=== PATIENT | female | born 1945 | race Caucasian/White ===

== ENCOUNTER 2016-04-27 08:26 | Outpatient (CLI) | payer OTHER ==
[~2016-04-27] VITALS: Ht 161.3 cm; Wt 85.7 kg
[2016-04-27] VITALS (12 sets, daily range): BP systolic 143–172; BP diastolic 59–81
[~2016-04-27 08:26] MED LIST: AMLO5TAB2 PO; CLON2TAB2 PO; CYCL10TA2 PO; DOCU-27 PO; HYDR-2762 PO; LOSA100T6 PO; MELO-150 PO; PIOG30TA20 PO
[2016-04-27 08:48] LABS: BASO # 0.1 x10^3/uL (0.0-0.2); BASO % 1 % (0-3); EOS % 6 % (0-3); HEMATOCRIT 31.9 % (36.0-47.0); LYMPH # 1.6 x10^3/uL (1.0-4.8); LYMPH % 31 % (24-48); MEAN CORPUSCULAR HEMOGLOBIN 26 pg (25-35); MEAN CORPUSCULAR HGB CONC 31 g/dL (31-37); MEAN CORPUSCULAR VOLUME 84 fL (79-100); MONO % 10 % (0-9); NEUT % 53 % (31-73); PLATELET COUNT 312 x10^3/uL (140-400); RED BLOOD COUNT 3.82 x10^6/uL (3.50-5.40); RED CELL DISTRIBUTION WIDTH 20.7 % (11.5-14.5); WHITE BLOOD COUNT 5.4 x10^3/uL (4.0-11.0)
[2016-04-27 09:00] LABS: INR 1.2 (0.8-1.1)
[2016-04-27] MEDS ORDERED: LIDOCAINE 1% / SOD BICARB 8.4% 20 ML VIAL. IJ ONE ×3 (09:15→09:45)
[2016-04-27] MEDS ORDERED: MIDAZOLAM HCL 2 MG/2 ML VIAL. ONE (09:20)
[2016-04-27] MEDS ORDERED: FENTANYL PF 100 MCG/2 ML VIAL. ONE (09:20)
[2016-04-27] MEDS ORDERED: MIDAZOLAM HCL 2 MG/2 ML VIAL. IV ONE (09:45)
[2016-04-27] MEDS ORDERED: FENTANYL PF 100 MCG/2 ML VIAL. IV ONE (09:45)
--- NOTE | 2016-04-27 10:05 | PDOC ---
BRIEF OPERATIVE NOTE Pre-Op Diagnosis Anemia Post-Op Diagnosis same Procedure Performed CT Bone Marrow Biopsy Surgeon Leighann Anesthesia Type: Conscious Sedation Specimens Obtained 2 x 2cc aspirates and 1 x 10g core Complications No immediate JOSELYN MILLER MD Apr 27, 2016 10:05
--- NOTE | 2016-04-27 10:07 | PDOC ---
MODERATE SEDATION ASSESSMENT RISKS/ALTERNATIVES Risks/Alternatives Risks and alternatives of this type of sedation and procedure discussed with: RISK/ALTERNATIVES: Patient H & P ON CHART H & P H & P on chart and reviewed for co-morbid conditions and appropriate labs. H&P ON CHART: Yes STATUS PREG STATUS ASSESSED: Yes MEDS/ALLERGIES REVIEWED Meds/Allergies Reviewed Medications and Allergies including time and route of recently administered narcotics and sedatives. MEDS/ALLERGIES REVIEWED: Yes ASA RATING ASA RATING: II AIRWAY ASSESSMENT Airway Assessment Airway patency, oral function limitations, presence of caps, crowns, dentures, partials, and ability to extend neck assessed. AIRWAY ASSESSMENT: Yes MALLAMPATI SCORE MALLAMPATI SCORE: II PRE-SEDATION ASSESSMENT PRE-SEDATION ASSESSMENT: Yes JOSELYN MILLER MD Apr 27, 2016 10:07
--- NOTE | 2016-04-27 10:08 | PDOC1 ---
History and Physical Date of Procedure Date of Admission History of Present Illness Reason for Visit Anemia Past Medical History Past Medical History see nursing pre-op assessment Current Medications Current Medications Current Medications Lidocaine/Sodium Bicarbonate (Buffered Lidocaine 1%) 20 ml STK-MED ONCE IJ ; Start 04/27/16 at 09:15; Stop 04/27/16 at 09:16; Status DC Lidocaine/Sodium Bicarbonate (Buffered Lidocaine 1%) 20 ml STK-MED ONCE IJ ; Start 04/27/16 at 09:19; Stop 04/27/16 at 09:20; Status DC Fentanyl Citrate (Fentanyl 2ml Vial) 100 mcg STK-MED ONCE .ROUTE ; Start at 09:20; Stop 04/27/16 at 09:21; Status DC Midazolam HCl (Versed) 2 mg STK-MED ONCE .ROUTE ; Start 04/27/16 at 09:20; Stop 04/27/16 at 09:21; Status DC Lidocaine/Sodium Bicarbonate (Buffered Lidocaine 1%) 3 ml 1X ONCE IJ Last administered on 04/27/16 09:41; Start 04/27/16 at 09:45; Stop 04/27/16 at 09:46 ; Status DC Midazolam HCl (Versed) 1 mg 1X ONCE IV Last administered on 04/27/16 09:42; Start 04/27/16 at 09:45; Stop 04/27/16 at 09:46; Status DC Fentanyl Citrate (Fentanyl 2ml Vial) 50 mcg 1X ONCE IV Last administered on 09:42; Start 04/27/16 at 09:45; Stop 04/27/16 at 09:46; Status DC Active Scripts Active Reported Hydrocodone-Apap 7.5-325 (Hydrocodone Bit/Acetaminophen) 1 Each Tablet 1 Tab PO PRN Q6HRS PRN Clonazepam 2 Mg Tablet 2 Mg PO DAILY Actos (Pioglitazone Hcl) 30 Mg Tablet 1 Tab PO DAILY Losartan Potassium 100 Mg Tablet 100 Mg PO DAILY Amlodipine Besylate 5 Mg Tablet 5 Mg PO HS Allergies Allergies: Coded Allergies: Penicillins (Verified Allergy, Intermediate, 01/03/16) Physical Exam Vital Signs Vital Signs Date Time Temp Pulse Resp B/P Pulse Ox O2 Delivery O2 Flow Rate FiO2 04/27/16 09:51 62 22 97 Nasal Cannula 2.0 04/27/16 09:14 97.9 154/64 97.9 Other see nursing pre-op assessment Assessment Assessment Anemia Problems: Plan Plan CT Bone Marrow biopsy JOSELYN MILLER MD Apr 27, 2016 10:08
[2016-04-27 10:43] LABS: ANISOCYTOSIS PRESENT; PLT ESTIMATE ADEQUATE (ADEQUATE)
[2016-04-27] MEDS ORDERED: HYDROCODONE/APAP 5/325MG TABLET. PO ONE (11:00)
--- NOTE | 2016-04-27 13:23 | RAD ---
Metastatic skeletal survey, 04/27/2016: History: Lytic bone lesions Multiple images of the bony skeleton were obtained with the following findings delineated: 1. A PA view of the chest reveals several left-sided rib fractures of varying ages. Several of these fractures are mildly displaced. A displaced fracture of the anterolateral aspect of the left seventh rib appears to be recent. There is no evidence of underlying pneumothorax or hemothorax. 2. A lateral view of the skull reveals multiple scattered lytic lesions with sharply defined margins. 3. AP and lateral views of the spine demonstrate an L4 vertebral compression fracture, also noted on an MR study from 04/09/2016. There is patchy bony demineralization. There are moderate scattered degenerative changes throughout the spine. There is a mild associated spondylolisthesis at L2-3 and L3-4. 4. An AP view of the pelvis demonstrates patchy bony demineralization. No definite lytic lesion is seen. A left hip prosthesis is in place. 5. AP views of both humeri and forearms reveal numerous patchy punched out lytic lesions, best seen in both humeri. No pathologic fracture is seen. 6. AP views of both femurs and lower legs demonstrates similar scattered lytic lesions, most numerous in the femurs. No pathologic fracture is evident. A small sclerotic focus in the distal right femur is compatible with a bone infarct. There are moderately severe degenerative changes at both knees. IMPRESSION: 1. Numerous scattered lytic lesions best demonstrated in the skull and extremities as described above, compatible with multiple myeloma. Metastatic disease could also give this appearance. 2. Multiple left-sided rib fractures which are probably pathologic. 3. Mild L4 vertebral compression fracture. 4. Moderate scattered degenerative changes in the spine and at both knees. 5. Left total hip prosthesis in place.
--- NOTE | 2016-04-27 13:33 | RAD ---
Procedure: CT-guided bone marrow aspiration and biopsy Clinical Indication: Adult female with myeloma Sedation: Conscious sedation was administered for 10 minutes. The patient was monitored by a qualified independent observer throughout the time of sedation. Please refer to the medical record for exact doses of medications utilized to achieve moderate sedation. Antibiotics: None Fluoro Time: Not applicable Contrast: None Sterility: The procedure was performed in its entirety using appropriate elements of sterile technique. Consent: The procedure was explained in its entirety to the patient or the patients designated service support representative by a member of the treatment team, including a discussion of the risks, benefits and commonly accepted alternatives to the procedure, as well as the expected consequences of no therapy whatsoever. Discussion of the risks included, but was not limited to, those that are most frequent and those that are rare but possibly severe or life-threatening, as well as the possibility of unforeseen complications. Technique and Findings: Following informed consent, the patient was prepped and draped in usual sterile fashion. Preliminary CT scan of the area of interest was performed. 1% Lidocaine was used to achieve local anesthesia. Under periodic CT surveillance, an 11-gauge needle was advanced through the cortex of the posterior superior iliac spine and 2 separate 2 mL marrow aspirates were obtained and preserved on site by the engineer first assistant. A single 11-gauge core biopsy specimen was then obtained and preserved in formalin. The needle was then removed and hemostasis was achieved with manual compression. Complications: No immediate Impression: 1. CT-guided bone marrow aspiration and biopsy as described PQRS Compliance Statement: One or more of the following individualized dose reduction techniques were utilized for this examination: 1. Automated exposure control 2. Adjustment of the mA and/or kV according to patient size 3. Use of iterative reconstruction technique
--- NOTE | 2016-05-04 15:13 | PATHOLOGY ---
PATHOLOGY REPORT * * * * * * * * FINAL DIAGNOSIS: Peripheral smear: - Normocytic normochromic anemia, mild. Bone marrow, aspirate smears, clot section, and core biopsy: - VARIABLE NORMOCELLULAR TO FOCALLY MILDLY HYPERCELLULAR MARROW SHOWING TRILINEAGE HEMATOPOIESIS, NO SIGNIFICANT DYSPOIESIS, AND FOCAL SOLID CLUSTERS OF PLASMA CELLS SHOWING KAPPA LIGHT CHAIN RESTRICTION, COMPATIBLE WITH A PLASMA CELL NEOPLASM. SEE COMMENT. - Focal adequate reticuloendothelial iron stores. COMMENT: The peripheral smear shows a mild normocytic normochromic anemia. The bone marrow is normocellular to focally mildly hypercellular and shows trilineage hematopoiesis, no significant dyspoiesis, and multiple solid clusters of plasma cells. The solid clusters of plasma cells show kappa light chain restriction. The remaining marrow appears to show a mild polyclonal plasmacytosis. Since the patient appears to have related organ or tissue impairment (i.e. lytic lesions and anemia), the findings are consistent with symptomatic plasma cell myeloma. Correlate clinically. (JPM:mgr; d/t: 05/01/16) Special Stains Performed: Iron stain (A1, aspirate smear); Immunoperoxidase stain for CD138 (A1, B1); In situ hybridization for kappa and lambda light chain both performed on (A1). REPORT ELECTRONICALLY SIGNED BY: Tra Lakhani M.D. DATE/TIME: 05/04/2016 15:13 * * * * * * * * MICROSCOPIC DESCRIPTION: Laboratory Data: The CBC results are dated 04/27/16. The WBC count is 5.4 K/CMM, and the automated WBC differential reveals 53% neutrophils, 31% lymphs, 10% monos, 6% eos, and 1% baso. The RBC count is 3.82 M/CMM, hemoglobin 10.0 G/DL, hematocrit 31.9%, MCV 84 FL, MCH 26 PG, MCHC 31 G/DL, and the RDW is 20.7%. The platelet count is 312 K/CMM. Peripheral Smear: The peripheral smear is reviewed. The WBC count is low normal. The WBC differential reveals a predominance of segmented neutrophils, with smaller populations of lymphocytes and monocytes and several eosinophils and basophils noted. Neutrophils do not show dysplastic changes. There is no significant neutrophilic left shift. There are no circulating blasts. There is no leukoerythroblastic reaction. The lymphocyte population consists of predominantly of small lymphocytes. There are no circulating immature plasma cells. Red blood cells predominantly appear normochromic. Some of the red blood cells appear mildly hypochromic. Red blood cells show moderate anisocytosis and range from normocytic to mildly microcytic. Red blood cells show no significant poikilocytosis. An occasional teardrop red blood cell is noted. Platelets appear normal in number and morphology. Aspirate Smears: Three Gonzalez's-stained and one iron-stained aspirate smears are examined. Erythroid maturation appears normoblastic. There are no megaloblastic or overt dysplastic changes. Granulopoiesis qualitatively appears normal. There is no significant left shift or dysplastic changes. There is no increase of blasts. Megakaryocytes appear adequate in number and are of variable ploidy. There are focal areas of plasmacytosis. Many areas show less than 5%-10% plasma cells. There are focal areas showing between 20% and 40% plasma cells. There is a cellular area within one of the smears which show a sheet of monotonous appearing cells consistent with a smeared nodule of plasma cells. This same smear has another small area showing a solid focus of plasma cells consistent with a smaller smeared nodule of plasma cells. The plasma cells in this area are atypical. The plasma cells are enlarged, and possess enlarged eccentric nuclei containing a nucleolus. Occasional binucleated and rare trinucleated plasma cells are noted. Other areas of the marrow show a mixture of relatively small plasma cells and larger atypical plasma cells. The iron stain of the aspirate smear shows only focal granular iron stores. No ringed sideroblasts are identified. Bone Marrow Biopsy and Clot Sections: Sections of the bone marrow biopsy reveal a segment of bone marrow which ranges between 20% and 40% cellular. The clot section contains multiple marrow particles, the majority of which range between 20% and 40-50% cellular. There is a good admixture of erythroid and granulocytic precursors, which are present in varying stages of maturation. Megakaryocytes appear adequate in number and are of variable ploidy. There are two solid nodular clusters of plasma cells within the bone marrow biopsy. There are four expanded solid nodules of plasma cells and several smaller solid nodular clusters of plasma cells. The plasma cells are mildly atypical. The plasma cells possess enlarged eccentric nuclei containing inconspicuous nucleoli. Immunoperoxidase stains for CD138 are obtained on the biopsy and clot section and in situ hybridization for kappa and lambda light chain are obtained on the clot section and yield the following results: CD138 (B1): Two solid nodules of plasma cells positive; plasma cells positive having an interstitial distribution and comprising approximately 5-10% of nucleated marrow cells. CD138 (A1): Several solid nodules of plasma cells positive; plasma cells positive having an interstitial distribution and comprising approximately 5-10% of nucleated marrow cells. [place] FLOWER (A1): Plasma cells in solid nodules positive and show kappa light chain restriction; small population of plasma cells having an interstitial distribution positive and appearing polyclonal. Conchita FLOWER (A1): Only a few plasma cells in solid nodules positive; small population of plasma cells having an interstitial distribution positive and appearing polyclonal. The iron stain of the clot section shows focal reticuloendothelial iron stores. There are no ringed sideroblasts. Special Studies: Bone marrow submitted for flow cytometry has a viability of 99.1%. Granulocytes comprise 80.9% of total cells and show phenotypic evidence of maturation. Monocytes comprise 3.7% of total cells and show phenotypic evidence of maturation. CD45 dim, CD34 positive cells comprise 0.9% of total cells. Lymphocytes comprise 11.9% of total cells. T-cells comprise 84.9% of lymphoid cells and show a CD4/CD8 ratio of about 1.3. NK-cells comprise 7.3% of lymphoid cells. Mature B-cells comprise 5.8% of lymphoid cells and are polyclonal with a kappa:lambda ratio of 1.7. Plasma cells comprise 0.6% of total cells. The plasma cells show both an abnormal and normal plasma cell phenotype. The majority (approximately 64% of all plasma cells) show an abnormal plasma cell phenotype and are CD19 negative, CD45 negative, and CD56 positive with cytoplasmic kappa light chain restriction. The kappa restricted plasma cells comprise approximately 91% of all plasma cells. Bone marrow submitted for cytogenetic analysis shows a normal female karyotype in all cells analyzed GROSS PATHOLOGY: A. Received in formalin labeled "Natty Cardoza and BM asp," is blood coagulum, measuring from 2.3 x 2.0 x 0.3 cm in aggregate dimensions. The specimen is submitted entirely in cassette A1. B. Received in formalin labeled "Alpesh Cardozaia" and additionally labeled "bm bx" on the requisition is a single needle core of lutz bone, measuring 1.5 cm in length and 0.2 cm in diameter. The specimen is submitted entirely in cassette B1, following decalcification. (TTL; 04/27/2016) INITIAL CPT CODE(S): 16387, 22168, 42553(2), 11278, 70066(2), 06215, 36691, 02921(2) Professional services performed [place] [facility] [place] [address] Technical services performed by [facility] at [address] [place] [address], [facility] [address], [place] [address]. SPECIMEN(S) RECEIVED: A.Bone marrow, clot B.Bone marrow, biopsy C.Bone marrow, aspirate smears D.Peripheral smear CLINICAL HISTORY: Myeloma PATIENT: NATTY CARDOZA /AGE: 12 1945 (Age: 71) PATIENT #: [id number] ALT CASE #: SPECIMEN COLLECTION DATE: 04/27/2016 SPECIMEN RECEIVED DATE: 04/27/2016 [facility] - [address] [place] [address] - PHONE: [phone] * * * END OF REPORT * * *
== END 2016-04-27 11:50 | disposition home or self-care (01) ==
LOC: INTRAD 08:26
PROVIDERS: ATTEND Internal Medicine Hematology & Oncology
DX: D72.823 Leukemoid reaction (principal); D64.9 Anemia, unspecified; M89.9 Disorder of bone, unspecified; I10 Essential (primary) hypertension; E66.9 Obesity, unspecified; E11.9 Type 2 diabetes mellitus without complications; F17.200 Nicotine dependence, unspecified, uncomplicated
CPT/HCPCS: 36415; 38221; 77012; 77075; 85007; 85027; 85610; 88184; 88185; 88237; G0364; J2250; J3010; 88305; 88311; 88313; 88341; 88342; 88364; 88365; G0641

== ENCOUNTER 2016-12-03 15:00 | Emergency (ER) | payer OTHER ==
[~2016-12-03] VITALS: Ht 162.6 cm; Wt 85.7 kg
[~2016-12-03 15:00] MED LIST changes: +DOCU-109 PO; -DOCU-27 PO; -MELO-150 PO; +MELO15TA23 PO; -PIOG30TA20 PO; +PIOG30TA41 PO
--- NOTE | 2016-12-03 15:44 | PHYS DOC ---
Past Medical History Past Medical History: Diabetes-Type II, Hypertension, Other Additional Past Medical Histor: multiple myeloma last chemo in july Alcohol Use: Rarely Drug Use: None Adult General Chief Complaint Chief Complaint: CHEST WALL PAIN HPI HPI Patient is a 71 year old [female] who presents with [1 pm three episodes fleeting CP (not exertional; substernal; nonradiating) lasting less than 30 seconds and exertional dyspnea w few days of new feet and ankle swelling. hx multiple myeloma w chemo this summer; no cardiac or lung hx. no fever, nausea, vomiting or diarrhea. no prior cardiac workup or blood clots.] Review of Systems Review of Systems Constitutional: Denies fever or chills [] Eyes: Denies change in visual acuity, redness, or eye pain [] HENT: Denies nasal congestion or sore throat [] Respiratory: Denies cough or shortness of breath [] Cardiovascular: No additional information not addressed in HPI [] GI: Denies abdominal pain, nausea, vomiting, bloody stools or diarrhea [] : Denies dysuria or hematuria [] Musculoskeletal: Denies back pain or joint pain [] Integument: Denies rash or skin lesions [] Neurologic: Denies headache, focal weakness or sensory changes [] Endocrine: Denies polyuria or polydipsia [ all ROS neg except as mentioned in the HIP] Current Medications Current Medications Current Medications Medications (Trade) Dose Ordered Sig/Cara Start Time Stop Time Status Last Admin Dose Admin Info (Do NOT chart on this entry -- for MONITORING) 1 each PRN DAILY PRN 12/03/16 16:30 12/03/16 18:05 DC Iohexol (Omnipaque 350 Mg/ml) 60 ml 1X ONCE 12/03/16 16:30 12/03/16 16:31 DC 12/03/16 16:32 60 ML Sodium Chloride 1,000 ml @ 0 mls/hr 1X ONCE 12/03/16 16:45 12/03/16 16:46 DC 12/03/16 16:56 999 MLS/HR Allergies Allergies Allergies Coded Allergies Type Severity Reaction Last Updated Verified Penicillins Allergy Intermediate 01/03/16 Yes Physical Exam Physical Exam Constitutional: Well developed, well nourished but bald post chemo, no acute distress, non-toxic appearance. [] HENT: Normocephalic, atraumatic, bilateral external ears normal, oropharynx moist, no oral exudates, nose normal. [] Eyes: PERRLA, EOMI, conjunctiva normal, no discharge. [] Neck: Normal range of motion, no tenderness, supple, no stridor. [] Cardiovascular:Heart rate regular rhythm, no murmur [] Lungs & Thorax: Bilateral breath sounds clear to auscultation [] Abdomen: Bowel sounds normal, soft, no tenderness, no masses, no pulsatile masses. [] Skin: Warm, dry, no erythema, no rash. [] Back: No tenderness, no CVA tenderness. [] Extremities: No tenderness, no cyanosis, no clubbing, ROM intact; TRACE 1+ edema ankles/feet. [] Neurologic: Alert and oriented X 3, normal motor function, normal sensory function, no focal deficits noted. [] Psychologic: Affect normal, judgement normal, mood normal. [] Current Patient Data Vital Signs Vital Signs Date Time Temp Pulse Resp B/P (MAP) Pulse Ox O2 Delivery O2 Flow Rate FiO2 12/03/16 18:01 76 18 157/70 (99) 97 Room Air 12/03/16 15:15 98.2 98.2 Lab Values Laboratory Tests Test 12/03/16 15:35 White Blood Count 4.1 x10^3/uL (4.0-11.0) Red Blood Count 3.36 x10^6/uL (3.50-5.40) L Hemoglobin 11.7 g/dL (12.0-15.5) L Hematocrit 34.6 % (36.0-47.0) L Mean Corpuscular Volume 103 fL (79-100) H Mean Corpuscular Hemoglobin 35 pg (25-35) Mean Corpuscular Hemoglobin Concent 34 g/dL (31-37) Red Cell Distribution Width 14.5 % (11.5-14.5) Platelet Count 174 x10^3/uL (140-400) Neutrophils (%) (Auto) 70 % (31-73) Lymphocytes (%) (Auto) 20 % (24-48) L Monocytes (%) (Auto) 7 % (0-9) Eosinophils (%) (Auto) 3 % (0-3) Basophils (%) (Auto) 1 % (0-3) Neutrophils # (Auto) 2.9 x10^3uL (1.8-7.7) Lymphocytes # (Auto) 0.8 x10^3/uL (1.0-4.8) L Monocytes # (Auto) 0.3 x10^3/uL (0.0-1.1) Eosinophils # (Auto) 0.1 x10^3/uL (0.0-0.7) Basophils # (Auto) 0.0 x10^3/uL (0.0-0.2) Sodium Level 146 mmol/L (136-145) H Potassium Level 3.1 mmol/L (3.5-5.1) L Chloride Level 110 mmol/L (98-107) H Carbon Dioxide Level 27 mmol/L (21-32) Anion Gap 9 (6-14) Blood Urea Nitrogen 12 mg/dL (7-20) Creatinine 1.1 mg/dL (0.6-1.0) H Estimated GFR (Cockcroft-Gault) 49.2 BUN/Creatinine Ratio 11 (6-20) Glucose Level 136 mg/dL (70-99) H Calcium Level 8.7 mg/dL (8.5-10.1) Total Bilirubin 0.2 mg/dL (0.2-1.0) Aspartate Amino Transferase (AST) 26 U/L (15-37) Alanine Aminotransferase (ALT) 17 U/L (14-59) Alkaline Phosphatase 52 U/L (46-116) Troponin I Quantitative 0.023 ng/mL (0.000-0.055) Total Protein 5.8 g/dL (6.4-8.2) L Albumin 2.4 g/dL (3.4-5.0) L Albumin/Globulin Ratio 0.7 (1.0-1.7) L Laboratory Tests 12/03/16 15:35 Laboratory Tests 12/03/16 15:35 EKG EKG EKG my interp NSR rate 82 no stemi, qtc nml[] Radiology/Procedures Radiology/Procedures CTA chest: [Negative For pulmonary embolism radiology report was reviewed by me ] Course & Med Decision Making Course & Med Decision Making Pertinent Labs and Imaging studies reviewed. (See chart for details) CT scan and labs were unremarkable. EKG and troponin were negative. At this point patient does not appear to be a candidate for an outpatient stress test given underlying health issues. Plan will be to place patient on low-dose diuretics. [] Dragon Disclaimer Dragon Disclaimer This electronic medical record was generated, in whole or in part, using a voice recognition dictation system. Departure Departure Impression: Primary Impression: Chest pain Additional Impression: Leg edema Disposition: HOME, SELF-CARE Condition: IMPROVED Referrals: KEV DUTTA MD (PCP) Patient Instructions: Chest Pain (Nonspecific), Eypc-nm-Vdmw, Edema, Easy-to- Read Scripts Potassium Chloride (POTASSIUM CHLORIDE) 20 Meq Tablet.er 20 MEQ PO DAILY for 5 Days, #5 TAB.SR Prov: KAM HOLM MD 12/03/16 Furosemide (LASIX) 20 Mg Tablet 20 MG PO DAILY for leg edema for 5 Days, #5 TAB Prov: KAM HOLM MD 12/03/16 Problem Qualifiers KAM HOLM MD Dec 03, 2016 15:44
[2016-12-03 15:48] LABS: BASO % 1 % (0-3); EOS % 3 % (0-3); HEMATOCRIT 34.6 % (36.0-47.0); HEMOGLOBIN 11.7 g/dL (12.0-15.5); LYMPH # 0.8 x10^3/uL (1.0-4.8); LYMPH % 20 % (24-48); MEAN CORPUSCULAR HEMOGLOBIN 35 pg (25-35); MEAN CORPUSCULAR HGB CONC 34 g/dL (31-37); MEAN CORPUSCULAR VOLUME 103 fL (79-100); MONO % 7 % (0-9); NEUT % 70 % (31-73); PLATELET COUNT 174 x10^3/uL (140-400); RED BLOOD COUNT 3.36 x10^6/uL (3.50-5.40); RED CELL DISTRIBUTION WIDTH 14.5 % (11.5-14.5); WHITE BLOOD COUNT 4.1 x10^3/uL (4.0-11.0)
[2016-12-03 15:58] LABS: CALCIUM 8.7 mg/dL (8.5-10.1); CREATININE 1.1 mg/dL (0.6-1.0); GFR 49.2; POTASSIUM 3.1 mmol/L (3.5-5.1)
--- NOTE | 2016-12-03 15:59 | EKG ---
[facility] [address] [place] [address] Test Date: 2016-12-03 Test Time: 15:11:26 Pat Name: TACHO CARDOZA Department: Room: Gender: F [employer] Coordinator: : 1945 Requested By: KAM HOLM Order Number: [id number] Reading MD: Adrian Jolly Measurements Intervals Rindge Rate: 82 P: -4 [place]: 160 QRS: -26 QRSD: 84 T: 119 QT: 368 QTc: 433 Interpretive Statements SINUS RHYTHM NON-SPECIFIC ST/T CHANGES Electronically Signed On 12-08-2016 7:12:03 CDT by Adrian Jolly
[2016-12-03 16:04] LABS: ALBUMIN 2.4 g/dL (3.4-5.0); ALBUMIN/GLOBULIN RATIO 0.7 (1.0-1.7); TOTAL BILIRUBIN 0.2 mg/dL (0.2-1.0); TOTAL PROTEIN 5.8 g/dL (6.4-8.2)
[2016-12-03] MEDS ORDERED: IOHEXOL 350 MG/ML 100 ML VIAL. IV ONE (16:30)
[2016-12-03] MEDS ORDERED: CONTRAST GIVEN MC PRN (16:30)
[2016-12-03] MEDS ORDERED: IV NORMAL SALINE 1000ML BAG 1,000 ML IV ONE (16:45)
--- NOTE | 2016-12-03 16:56 | RAD ---
CTA of the chest with contrast, 12/03/2016: History: Multiple myeloma, dyspnea, possible pulmonary emboli Multidetector CT imaging was performed following an IV bolus injection of iodinated contrast material. Multiplanar reconstructions were produced including coronal MIP images. The central pulmonary arteries are well opacified. There is motion artifact on some of these images. There is a tiny linear lucency in the descending pulmonary artery on the right. This is a subtle finding and most likely represents a a tiny web due to prior pulmonary embolic disease. There are no filling defects to suggest acute emboli. The thoracic aorta is of normal caliber. The heart is mildly enlarged. There are calcified subcarinal lymph nodes compatible with old granulomatous disease. No mediastinal or hilar adenopathy is seen. There is minimal dependent atelectasis and/or scarring in the lungs. No significant pulmonary consolidation is seen. There is no evidence of pleural fluid. There is a lap band type device related to the proximal aspect of the stomach. There are multiple surgical clips and sutures in the left upper quadrant of the abdomen. The gallbladder is incompletely visualized, however, its hanna appear to be mildly thickened. No dense gallstones are seen. There are scattered lytic lesions in the bones compatible with the given history of multiple myeloma. IMPRESSION: 1. Probable tiny web in the descending pulmonary artery on the right, most likely old. 2. No acute central pulmonary emboli are identified. 3. Mild nonspecific gallbladder wall thickening, incompletely delineated on these chest scans. 4. Multiple scattered lytic bony lesions compatible with the history of multiple myeloma. PQRS Compliance Statement: One or more of the following individualized dose reduction techniques were utilized for this examination: 1. Automated exposure control 2. Adjustment of the mA and/or kV according to patient size 3. Use of iterative reconstruction technique
[2016-12-03] MEDS ORDERED: FURO-69 PO (17:52)
[2016-12-03] MEDS ORDERED: POTA20TA82 PO (17:52)
[2016-12-03 18:01] VITALS: BP 157/70
== END 2016-12-03 18:04 | disposition home or self-care (01) ==
LOC: ER 15:00
DX: R07.89 Other chest pain (principal); R60.0 Localized edema; E11.9 Type 2 diabetes mellitus without complications; I10 Essential (primary) hypertension; Z88.0 Allergy status to penicillin
CPT/HCPCS: 36415; 71275; 80053; 84484; 85025; 93005; 96360; 99285; J7030; Q9967

== ENCOUNTER → 2017-05-26 | Outpatient (CLI) | payer OTHER ==
[2017-05-26] MEDS: GADOBUTROL 7.5 MMOL/7.5 ML VIAL IV ×2 (13:18)
[2017-05-26 13:20] LABS: ISTAT CREATININE 1.1 mg/dL (0.6-1.1)
== END | disposition home or self-care (01) ==
LOC: KCIC MRI 12:18
DX: M48.02 Spinal stenosis, cervical region (principal); M25.78 Osteophyte, vertebrae; M50.322 Other cervical disc degeneration at C5-C6 level; M47.892 Other spondylosis, cervical region; C90.00 Multiple myeloma not having achieved remission
CPT/HCPCS: 72156; 82565; A9585